=== PATIENT | female | born 1960 ===

== ENCOUNTER → 2017-09-04 | Outpatient (CLI) | payer BC ==
[2015-06-10 11:18] VITALS: BMI 19.5
[~2017-09-04] MED LIST: ACET-1966 PO; CELE-1 PO; ESTR0.62 PO; ESTROGEN CREAM TOP; OMEP-137 PO; OMEP-218 PO; OXYC-373 PO; VALA500T63 PO
--- NOTE | 2017-09-05 08:24 | RADIOLOGY IMAGING REPORT ---
FACILITY: [facility] [place] PATIENT NAME: ALICE WEINER : [id number] MR: [id number] V: [id number] EXAM DATE: ORDERING PHYSICIAN: LACHELLE THRASHER TECHNOLOGIST: Madiha Proctor PROCEDURE:BILATERAL DIGITAL SCREENING MAMMOGRAM WITH CAD ASSISTED INTERPRETATION & 3D TOMOSYNTHESIS COMPARISON:Prior mammograms 03/27/16, 04/14/14, 03/11/13, 10/29/10. INDICATIONS:SCREENING FINDINGS: Extremely dense heterogeneous fibroglandular tissue is seen throughout the breasts. The parenchymal pattern throughout the Right breast has remained stable. Polylobular mass in the medial Left breast appears much smaller. Biopsy clip in the 12 o'clock position of the Right breast seen and in the upper outer quadrant of the Left breast again seen. There is no demonstration of malignant appearing mass, malignant appearing calcifications or other secondary sign of malignancy in either breast. DIAGNOSTIC CATEGORY 2--BENIGN FINDING. RECOMMENDATIONS: ROUTINE MAMMOGRAM AND CLINICAL EVALUATION. IMPRESSION: BIRADS 2: Benign finding No significant abnormality is seen. Dictated by: Claudia Perry M.D. on 09/04/2017 at 16:26 Transcribed by: ADELE on 09/05/2017 at 7:41 Approved by: Claudia Perry M.D. on 09/05/2017 at 8:22 [facility]
== END ==
LOC: MAMO 07:01
PROVIDERS: ATTEND Family Medicine
DX: Z12.31 Encounter for screening mammogram for malignant neoplasm of breast (principal)
CPT/HCPCS: 77063; 77067

== ENCOUNTER → 2017-12-24 | Outpatient (CLI) | payer BC ==
[2015-06-10 11:18] VITALS: BMI 19.5
--- NOTE | 2017-12-24 09:26 | RADIOLOGY IMAGING REPORT ---
FACILITY: [facility] PATIENT NAME: Ronel Gleason : 1960 MR: [id number] V: [id number] EXAM DATE: ORDERING PHYSICIAN: LACHELLE THRASHER TECHNOLOGIST: Location: [facility] Patient: Ronel Gleason : 1960 Visit/Account:[id number] Date of Sevice: 12/24/2017 ANKLE 3 VIEW MIN LEFT Indication: Fall with ankle pain and swelling. Comparison: None Available Findings: 3 views of the left ankle are obtained. No acute fracture or dislocation is identified. Ankle mortise is intact. There is a subcortical lucency identified within the medial talar dome suggesting an over lying osteochondral lesion in this location. This could be further assessed with MRI if clinically in dicated. No joint effusion is seen. Subtalar joints appear appropriately aligned. No focal soft tissu e swelling. IMPRESSION: 1. No acute fracture or dislocation at the left ankle. 2. Subcortical lucency involving the medial talar dome suggestive of an overlying osteochondral lesio n. No fracture or collapse. If indicated, MRI could be performed for further assessment. Report Dictated By: Edi Rangel at 12/24/2017 9:20 AM Report E-Signed By: Edi Rangel at 12/24/2017 9:23 AM [id number]
== END ==
LOC: RAD 08:46
PROVIDERS: ATTEND Family Medicine
DX: M25.572 Pain in left ankle and joints of left foot (principal); M25.472 Effusion, left ankle

== ENCOUNTER 2018-04-29 01:39 | Day surgery (SDC) | payer BC ==
[2015-06-10 11:18] VITALS: Ht 175.3 cm; Wt 59.4 kg
[~2018-04-29] VITALS: Ht 175.3 cm; Wt 59.4 kg
[2018-04-29] VITALS (8 sets, daily range): BP systolic 108–126; BP diastolic 48–72
[~2018-04-29 01:39] MED LIST changes: +ESTR0.5T16 PO; +ESTR1PAT97 TD
[2018-04-29] MEDS: NORMOSOL R SOLN(*) 1000 ML BAG 1,000 ML IV PRN ×2 (06:48→08:32)
[2018-04-29] MEDS ORDERED: LIDOCAINE/SOD BICARB 8.4% SYR ID ONE (07:15)
[2018-04-29] MEDS ORDERED: PROPOFOL EMUL(*) 10MG/ML 20 ML 60 ML ONE (07:37)
[2018-04-29] MEDS ORDERED: LIDOCAINE MPF 1% 5 ML VIAL ONE (07:37)
--- NOTE | 2018-04-29 09:21 | Short(Outpt) Discharge Summary ---
Discharge Summary Reason for Hosp/Final Diag: (1) Colon cancer screening Status: Chronic Hospital Course & Plan: Colonoscopy completed without problems; normal. Departure Discharge to: Home, Self Care Discharge Instructions Home Meds Reported Medications Estradiol (CLIMARA 0.05 MG) 1 Each Patch.tdwk, 1 EACH TD Q7D, PATCH.WK 04/20/18 Valacyclovir Hcl (VALACYCLOVIR) 500 Mg Tablet, 500 MG PO DAILY PRN for COLD SORE 06/05/15 Diet: Regular Activity: As Tolerated Special Instructions: Your colonoscopy was completed without any problems and your prep was excellent (Good Job!!). I didn't find any polyps or any other abnormalities. I recommend that your next colonoscopy be in 10 years. ROSALVA FOX MD Apr 29, 2018 09:21
== END 2018-04-29 11:15 | disposition home or self-care (01) ==
LOC: OR 01:39
PROVIDERS: ATTEND Surgery
DX: Z12.11 Encounter for screening for malignant neoplasm of colon (principal)
CPT/HCPCS: 00812; 45378; J2001; J2704

== ENCOUNTER → 2018-12-15 | Outpatient (CLI) | payer BC ==
[2015-06-10 11:18] VITALS: BMI 19.5
--- NOTE | 2018-12-15 09:36 | RADIOLOGY IMAGING REPORT ---
FACILITY: [facility] - [place] PATIENT NAME: Ronel Gleason : 1960 MR: [id number] V: [id number] EXAM DATE: ORDERING PHYSICIAN: LACHELLE THRASHER TECHNOLOGIST: Location: [facility] [place] Patient: Ronel Gleason : 1960 Visit/Account:[id number] Date of Sevice: 12/15/2018 3 Views right fourth digit INDICATION: Trauma COMPARISON: None Available FINDINGS: No acute osseous abnormality identified. No evidence of radiopaque foreign body. The joint spaces are well-maintained. IMPRESSION: No acute or chronic osseous abnormality Report Dictated By: Ricardo Roblero MD at 12/15/2018 9:27 AM Report E-Signed By: Ricardo Roblero MD at 12/15/2018 9:28 AM WSN:[id number]
== END ==
LOC: RAD 08:50
PROVIDERS: ATTEND Family Medicine
DX: M79.644 Pain in right finger(s) (principal)